=== PATIENT | female | born 1995 | race Caucasian/White ===

== ENCOUNTER → 2016-10-31 | Outpatient (REF) | payer BC | LOC: M SFHCLERA 14:48 | PROVIDERS: ATTEND Nurse Practitioner Family | DX: R30.0 Dysuria (principal) ==

== ENCOUNTER 2017-01-24 10:41 | Emergency (ER) | payer BC ==
[~2017-01-24] VITALS: Ht 170.2 cm; Wt 78.2 kg
[2017-01-24] MEDS ORDERED: AUGM875T28 PO (10:47)
[2017-01-24] MEDS ORDERED: diphenhydrAMINE 25 MG CAP PO ONE (12:00)
[2017-01-24] MEDS ORDERED: DIFL150T PO (12:19)
[2017-01-24 12:29] VITALS: BP 122/67
== END 2017-01-24 12:30 | disposition home or self-care (01) ==
LOC: M ED 10:41
DX: N89.8 Other specified noninflammatory disorders of vagina (principal); T78.40XA Allergy, unspecified, initial encounter; X58.XXXA Exposure to other specified factors, initial encounter; Y92.89 Other specified places as the place of occurrence of the external cause; Z79.2 Long term (current) use of antibiotics

== ENCOUNTER → 2017-02-13 | Outpatient (REF) | payer BC ==
[~2017-02-13] MED LIST: AUGM875T28 PO; DIFL150T PO
== END ==
LOC: M SFHCLERA 15:12
PROVIDERS: ATTEND Physician Assistant
DX: R39.9 Unspecified symptoms and signs involving the genitourinary system (principal)

== ENCOUNTER → 2017-03-16 | Outpatient (REF) | payer BC | LOC: M SFHCLERA 12:33 | DX: R30.0 Dysuria (principal) | CPT/HCPCS: 87186 ==

== ENCOUNTER → 2017-05-01 | Outpatient (REF) | payer BC | LOC: M LAB REF 13:31 | DX: R30.0 Dysuria (principal) | CPT/HCPCS: 87086 ==

== ENCOUNTER → 2017-05-10 | Outpatient (CLI) | payer BC ==
[2017-05-10 17:39] LABS: BASO % 0.5 % (0.0-1.0); EOS % 0.5 % (0.0-3.0); HEMATOCRIT 38.5 % (36.0-47.0); HEMOGLOBIN 12.5 g/dl (12.0-16.0); IMMATURE GRANULOCYTE % 0.4 % (0-3.0); LYMPH # 1.9 10^3/uL (1.5-6.5); LYMPH % 22.3 % (24.0-44.0); MEAN CORPUSCULAR HEMOGLOBIN 27.4 pg (27.0-33.0); MEAN CORPUSCULAR HGB CONC 32.5 g/dl (32.0-36.5); MEAN CORPUSCULAR VOLUME 84.4 fl (80.0-96.0); MONO # 0.5 10^3/uL (0.0-0.8); MONO % 6.2 % (0.0-5.0); NEUTROPHILS # 5.8 10^3/uL (1.8-7.7); NEUTROPHILS % 70.1 % (36.0-66.0); PLATELET COUNT, AUTOMATED 241 10^3/uL (150-450); RED BLOOD COUNT 4.56 10^6/uL (4.00-5.40); RED CELL DISTRIBUTION WIDTH 12.4 % (11.5-14.5); WHITE BLOOD COUNT 8.3 10^3/uL (4.0-10.0)
[2017-05-10 19:10] LABS: CHLAMYDIA DNA AMPLIFICATION NEGATIVE (NEGATIVE); GC DNA AMPLIFICATION NEGATIVE (NEGATIVE)
[2017-05-13 12:13] LABS: RUBELLA IgG QUALITATIVE IMMUNE (IMMUNE)
[2017-05-13 12:16] LABS: HBsAg Prenatal NEGATIVE (NEGATIVE)
[2017-05-13 12:42] LABS: HIV 1&2 SCREEN CENTAUR NEGATIVE (NEGATIVE)
[2017-05-13 12:42] LABS: HEPATITIS C VIRUS ABY INDEX 0.1 INDEX (<0.8)
== END ==
LOC: M SMT 09:26
DX: Z3A.08 8 weeks gestation of pregnancy (principal)
CPT/HCPCS: 86762

== ENCOUNTER 2017-05-27 10:04 | Emergency (ER) | payer BC ==
[2017-05-27] MEDS: NS 1,000 ML IV (11:15)
[2017-05-27 11:41] LABS: BASO % 0.3 % (0.0-1.0); EOS # 0.1 10^3/uL (0.0-0.50); EOS % 0.7 % (0.0-3.0); HEMATOCRIT 37.1 % (36.0-47.0); HEMOGLOBIN 12.4 g/dl (12.0-16.0); IMMATURE GRANULOCYTE % 0.2 % (0-3.0); LYMPH # 1.8 10^3/uL (1.5-6.5); LYMPH % 20.1 % (24.0-44.0); MEAN CORPUSCULAR HGB CONC 33.4 g/dl (32.0-36.5); MEAN CORPUSCULAR VOLUME 83.7 fl (80.0-96.0); MONO # 0.5 10^3/uL (0.0-0.8); MONO % 5.5 % (0.0-5.0); NEUTROPHILS # 6.5 10^3/uL (1.8-7.7); NEUTROPHILS % 73.2 % (36.0-66.0); PLATELET COUNT, AUTOMATED 230 10^3/uL (150-450); RED BLOOD COUNT 4.43 10^6/uL (4.00-5.40); RED CELL DISTRIBUTION WIDTH 12.5 % (11.5-14.5); WHITE BLOOD COUNT 8.9 10^3/uL (4.0-10.0)
[2017-05-27 11:43] LABS: KETONE, URINE AUTO RFX NEGATIVE (NEGATIVE); MUCUS, URINE RFX SMALL (NEGATIVE); NITRITE, URINE AUTO RFX NEGATIVE (NEGATIVE); RBC, URINE AUTO RFX 1 /HPF (0-3); SPECIFIC GRAVITY UR AUTO RFX 1.017 (1.002-1.035); SQUAM EPITHELIAL CELL UR AURFX 9 /HPF (0-6); WBC, URINE AUTO RFX 2 /HPF (0-3)
[2017-05-27 11:44] LABS: LEUKOCYTE ESTERASE UR AUTO RFX 1+ (NEGATIVE)
[2017-05-27 12:01] LABS: ANION GAP 9 MEQ/L (8-16); BLOOD UREA NITROGEN 13 MG/DL (7-18); CALCIUM LEVEL 8.6 MG/DL (8.5-10.1); CARBON DIOXIDE LEVEL 23 MEQ/L (21-32); CHLORIDE LEVEL 106 MEQ/L (98-107); CREATININE FOR GFR 0.57 MG/DL (0.55-1.30); GLOMERULAR FILTRATION RATE > 60.0 (>60); GLUCOSE, FASTING 83 MG/DL (70-100); POTASSIUM SERUM 3.8 MEQ/L (3.5-5.1); SODIUM LEVEL 138 MEQ/L (136-145)
[2017-05-27 12:20] LABS: HCG, SERUM QUANTITATIVE 50117 MIU/ML; THYROXINE (T4) 13.1 UG/DL (4.5-12.0)
[2017-05-27 12:20] LABS: MAGNESIUM LEVEL 1.8 MG/DL (1.8-2.4)
== END 2017-05-27 13:19 | disposition home or self-care (01) ==
LOC: M ED 10:04
DX: O23.41 Unspecified infection of urinary tract in pregnancy, first trimester (principal); Z3A.10 10 weeks gestation of pregnancy
CPT/HCPCS: 76801

== ENCOUNTER → 2017-07-04 | Outpatient (REF) | payer BC | LOC: M LAB REF 17:15 | DX: R30.0 Dysuria (principal); Z34.82 Encounter for supervision of other normal pregnancy, second trimester | CPT/HCPCS: 87186 ==

== ENCOUNTER → 2017-07-19 | Outpatient (CLI) | payer BC | LOC: M RAD 10:59 | DX: Z34.82 Encounter for supervision of other normal pregnancy, second trimester (principal) | CPT/HCPCS: 76811 ==

== ENCOUNTER → 2017-07-30 | Outpatient (REF) | payer BC | LOC: M LAB REF 17:05 | DX: R30.0 Dysuria (principal) | CPT/HCPCS: 87186 ==

== ENCOUNTER → 2017-08-12 | Outpatient (CLI) | payer BC | LOC: M RAD 12:17 | DX: Z36.89 Encounter for other specified antenatal screening (principal); O32.1XX0 Maternal care for breech presentation, not applicable or unspecified; Z3A.23 23 weeks gestation of pregnancy | CPT/HCPCS: 76816 ==

== ENCOUNTER → 2017-09-03 | Outpatient (REF) | payer BC | LOC: M LAB REF 12:59 | DX: Z34.82 Encounter for supervision of other normal pregnancy, second trimester (principal) | CPT/HCPCS: 87186 ==

== ENCOUNTER → 2017-09-16 | Outpatient (CLI) | payer BC | LOC: M RAD 11:45 | DX: O26.843 Uterine size-date discrepancy, third trimester (principal); Z3A.26 26 weeks gestation of pregnancy; O36.62X0 Maternal care for excessive fetal growth, second trimester, not applicable or unspecified | CPT/HCPCS: 76816 ==

== ENCOUNTER → 2017-09-27 | Outpatient (CLI) | payer BC ==
[2017-09-27 17:50] LABS: BASO % 0.2 % (0.0-1.0); EOS % 0.3 % (0.0-3.0); HEMOGLOBIN 11.7 g/dl (12.0-15.5); IMMATURE GRANULOCYTE % 0.9 % (0-3.0); LYMPH # 2.3 10^3/uL (1.5-6.5); LYMPH % 17.9 % (24.0-44.0); MEAN CORPUSCULAR HEMOGLOBIN 28.7 pg (27.0-33.0); MEAN CORPUSCULAR HGB CONC 33.4 g/dl (32.0-36.5); MONO # 0.8 10^3/uL (0.0-0.8); MONO % 5.9 % (0.0-5.0); NEUTROPHILS # 9.7 10^3/uL (1.8-7.7); NEUTROPHILS % 74.8 % (36.0-66.0); PLATELET COUNT, AUTOMATED 251 10^3/uL (150-450); RED BLOOD COUNT 4.07 10^6/uL (4.00-5.40); RED CELL DISTRIBUTION WIDTH 12.8 % (11.5-14.5)
[2017-09-27 18:33] LABS: GLUCOSE CHALLENGE TEST 1 HOUR 98 MG/DL (LESS THAN 140)
== END ==
LOC: M LAB 15:54
DX: Z34.83 Encounter for supervision of other normal pregnancy, third trimester (principal); Z36.89 Encounter for other specified antenatal screening
CPT/HCPCS: 82950

== ENCOUNTER → 2017-11-11 | Outpatient (REF) | payer BC | LOC: M LAB REF 17:19 | DX: Z34.83 Encounter for supervision of other normal pregnancy, third trimester (principal) ==

== ENCOUNTER → 2017-11-18 | Outpatient (REF) | payer BC | LOC: M LAB REF 12:52 | DX: Z34.83 Encounter for supervision of other normal pregnancy, third trimester (principal) | CPT/HCPCS: 87081 ==

== ENCOUNTER 2017-12-19 08:20 | Inpatient (IN) | payer BC ==
[2017-12-19] MEDS: LACTATED RINGER'S 1000 ML IV (09:24)
[2017-12-19 09:48] LABS: HEMOGLOBIN 12.5 g/dl (12.0-15.5); MEAN CORPUSCULAR HEMOGLOBIN 28.2 pg (27.0-33.0); MEAN CORPUSCULAR HGB CONC 32.9 g/dl (32.0-36.5); MEAN CORPUSCULAR VOLUME 85.8 fl (80.0-96.0); PLATELET COUNT, AUTOMATED 250 10^3/uL (150-450); RED BLOOD COUNT 4.43 10^6/uL (4.00-5.40); RED CELL DISTRIBUTION WIDTH 13.2 % (11.5-14.5); WHITE BLOOD COUNT 13.8 10^3/uL (4.0-10.0)
[2017-12-19] MEDS ORDERED: FENTANYL 2MCG/ML ROPIVACAINE 0.2% IN 0.9% NACL 200ML IVBAG As Ordered (09:48)
[2017-12-19] MEDS ORDERED: OXYTOCIN 30 UNITS IN 0.9% NaCl 500ML IV BAG (J2590) As Ordered (09:49)
[2017-12-19] MEDS: LR 1,000 ML IV (10:40)
[2017-12-19] MEDS: FENTANYL/ROPIVACAINE/NACL BAG 200 ML EPIDURAL (11:30)
[2017-12-19] MEDS ORDERED: NALOXONE INJ 0.4 MG/1 ML VIAL (J2310) IV (11:30)
[2017-12-19] MEDS ORDERED: diphenhydrAMINE INJ 50MG/ML VIAL (J1200) IV (11:30)
[2017-12-19] MEDS ORDERED: EPIDURAL/PCA KEYS XX (11:30)
[2017-12-19] MEDS ORDERED: REFRIGERATOR IV KEYS XX (11:30)
[2017-12-19] MEDS ORDERED: EPIDURAL COMMENT XX (11:30)
[2017-12-19] MEDS ORDERED: ePHEDrine SULFATE 25 MG/5 ML(5MG/ML) SYRINGE IV (11:30)
[2017-12-19] MEDS: ONDANSETRON 4MG/2ML VIAL (J2405) IV (12:04)
[2017-12-19] MEDS ORDERED: OXYTOCIN DRIP 30 UNITS in APPROPRIATE DILUENT 1 EA IV ×2 (19:15→21:40)
[2017-12-19] MEDS ORDERED: DOCUSATE SODIUM 100 MG CAP PO (21:45)
[2017-12-19] MEDS ORDERED: MEASLES,MUMPS,RUBELLA VACCINE INJ (MMR-II) (90707) SC (21:45)
[2017-12-19] MEDS ORDERED: METHYLERGONOVINE MALEATE 0.2 MG TAB PO (21:45)
[2017-12-19] MEDS ORDERED: RHOGAM 300 MCG (1500 IU) INJ (J2790) IM (21:45)
[2017-12-20] MEDS: IBUPROFEN 800 MG TAB PO ×3 (01:23→18:06)
[2017-12-20] MEDS: PRENATAL VITAMINS CHEWABLE TABLET PO (10:04)
[2017-12-20] MEDS: DIBUCAINE 1% OINTMENT 30GM TOP (10:05)
[2017-12-20] MEDS: ACETAMINOPHEN 500 MG TAB PO (15:10)
[2017-12-21] MEDS: PRENATAL VITAMINS CHEWABLE TABLET PO (09:52)
== END 2017-12-21 10:31 | disposition home or self-care (01) | DRG 560 ==
LOC: M LDO 08:20 → M LDI 08:52 → M OBS 23:57
PROVIDERS: Advanced Practice Midwife
PROC: 10E0XZZ Delivery of Products of Conception, External Approach (ICD-10-PCS; principal; 2017-12-19)
PROC: 0HQ9XZZ Repair Perineum Skin, External Approach (ICD-10-PCS; 2017-12-19)
DX: O48.0 Post-term pregnancy (principal); Z3A.40 40 weeks gestation of pregnancy; O70.0 First degree perineal laceration during delivery; Z37.0 Single live birth

== ENCOUNTER → 2018-08-18 | Outpatient (REF) | payer BC, MEDICAID ==
[~2018-08-18] MED LIST changes: +IBUP-1114 PO; +MAPA500C PO; +PRENTAB9 PO
== END ==
LOC: M LAB REF 17:08
PROVIDERS: ATTEND Advanced Practice Midwife
DX: Z12.4 Encounter for screening for malignant neoplasm of cervix (principal); N87.0 Mild cervical dysplasia

== ENCOUNTER → 2019-02-08 | Outpatient (REF) | payer BC, MEDICAID ==
[2019-02-08 17:27] LABS: AMORPHOUS SEDIMENT SMALL (NEGATIVE); APPEARANCE, URINE CLEAR (CLEAR); BACTERIA, URINE AUTO 1+ (NEGATIVE); BILIRUBIN, URINE AUTO NEGATIVE (NEGATIVE); BLOOD, URINE BLOOD 1+ (NEGATIVE); COLOR, URINE YELLOW (YELLOW); GLUCOSE, URINE (UA) AUTO NEGATIVE (NEGATIVE); KETONE, URINE AUTO TRACE mg/dL (NEGATIVE); LEUKOCYTE ESTERASE, URINE AUTO 2+ (NEGATIVE); MUCUS, URINE SMALL (NEGATIVE); NITRITE, URINE AUTO NEGATIVE (NEGATIVE); PROTEIN, URINE AUTO 1+ mg/dL (NEGATIVE); RBC, URINE AUTO 25 /HPF (0-3); SPECIFIC GRAVITY URINE AUTO 1.025 (1.002-1.035); SQUAMOUS EPITHELIAL CELL UR AU 7 /HPF (0-6); TRANSITIONAL EPITHELIAL AUTO 2 /HPF; UROBILINOGEN, URINE AUTO 0.2 mg/dL (0.0-2.0); WBC, URINE AUTO 106 /HPF (0-3)
== END ==
LOC: M LAB REF 13:32
PROVIDERS: ATTEND Nurse Practitioner Family
DX: R30.0 Dysuria (principal)

== ENCOUNTER → 2019-07-23 | Outpatient (REF) | payer BC, MEDICAID | LOC: M LAB REF 12:28 | PROVIDERS: ATTEND Physician Assistant | DX: R30.0 Dysuria (principal) ==

== ENCOUNTER → 2019-11-16 | Outpatient (CLI) | payer BC, MEDICAID ==
[2019-11-16 17:09] LABS: URINE PREG TEST NEGATIVE (NEGATIVE)
[2019-11-16 17:17] LABS: BASO # 0.1 10^3/uL (0.0-0.2); BASO % 0.6 % (0.0-1.0); EOS # 0.1 10^3/uL (0.0-0.5); EOS % 0.8 % (0.0-3.0); HEMOGLOBIN 13.1 g/dl (12.0-15.5); LYMPH # 3.2 10^3/uL (1.5-5.0); MEAN CORPUSCULAR HEMOGLOBIN 27.5 pg (27.0-33.0); MONO # 0.7 10^3/uL (0.0-0.8); MONO % 7.3 % (0.0-5.0); NEUTROPHILS % 55.1 % (36.0-66.0); PLATELET COUNT, AUTOMATED 262 10^3/uL (150-450); RED BLOOD COUNT 4.77 10^6/uL (4.00-5.40)
[2019-11-16 17:45] LABS: ALBUMIN 4.2 GM/DL (3.2-5.2); ALT/SGPT 23 U/L (12-78); BILIRUBIN,TOTAL 0.4 MG/DL (0.2-1.0); BLOOD UREA NITROGEN 18 MG/DL (7-18); CALCIUM LEVEL 9.7 MG/DL (8.5-10.1); CARBON DIOXIDE LEVEL 26 MEQ/L (21-32); CHLORIDE LEVEL 107 MEQ/L (98-107); CREATININE FOR GFR 0.76 MG/DL (0.55-1.30); FREE T4 1.17 NG/DL (0.76-1.46); GLOMERULAR FILTRATION RATE > 60.0 (>60); GLUCOSE, FASTING 94 MG/DL (70-100); HCG, SERUM QUANTITATIVE < 1.0 MIU/ML; POTASSIUM SERUM 3.9 MEQ/L (3.5-5.1); SODIUM LEVEL 138 MEQ/L (136-145); THYROID STIMULATING HORMONE 0.644 uIU/ML (0.358-3.740); TOTAL PROTEIN 7.7 GM/DL (6.4-8.2)
== END ==
LOC: M LAB 16:30
PROVIDERS: ATTEND Family Medicine
DX: O99.89 Other specified diseases and conditions complicating pregnancy, childbirth and the puerperium (principal); R61 Generalized hyperhidrosis; Z3A.00 Weeks of gestation of pregnancy not specified

== ENCOUNTER → 2020-02-17 | Outpatient (CLI) | payer BC, MEDICAID | LOC: M LABSMTC 11:58 | PROVIDERS: ATTEND Family Medicine | DX: Z20.828 Contact with and (suspected) exposure to other viral communicable diseases (principal) ==

== ENCOUNTER → 2020-05-26 | Outpatient (REF) | payer BC, MEDICAID ==
[2020-05-26 17:21] LABS: APPEARANCE, URINE MANUAL CLEAR (CLEAR); COLOR, URINE MANUAL ORANGE (YELLOW)
[2020-05-26 17:29] LABS: GLUCOSE, URINE (UA) MANUAL NEGATIVE (NEGATIVE); PH,URINE MAN 6.5 UNITS (5.0 - 7.0); PROTEIN, URINE MANUAL OBSCURED mg/dL (NEGATIVE); SPECIFIC GRAVITY,URINE MANUAL 1.005 (1.002-1.035)
[2020-05-26 17:30] LABS: BILIRUBIN, URINE MANUAL OBSCURED (NEGATIVE); BLOOD URINE MANUAL POSITIVE (NEGATIVE); KETONE, URINE MANUAL OBSCURED mg/dL (NEGATIVE); LEUKOCYTE ESTERASE, URINE MAN POSITIVE (NEGATIVE); NITRITE, URINE MANUAL OBSCURED (NEGATIVE); UROBILINOGEN, URINE MANUAL OBSCURED mg/dl (NORMAL)
[2020-05-26 17:54] LABS: HYALINE CAST, URINE NONE SEEN /lpf (0-1); SQUAMOUS EPITHELIAL CELL URINE SMALL AMOUNT /hpf (SMALL AMT); WBC, URINE 40-50 /hpf (0-3)
[2020-05-26 17:55] LABS: BACTERIA, URINE MOD AMOUNT
== END ==
LOC: M LAB REF 16:27
PROVIDERS: ATTEND Physician Assistant
DX: R30.0 Dysuria (principal)

== ENCOUNTER 2020-09-09 12:32 | Emergency (ER) | payer BC, MEDICAID ==
[~2020-09-09] VITALS: Ht 170.2 cm; Wt 88.3 kg
[2020-09-09 12:32] VITALS: BP 140/72
== END 2020-09-09 13:44 | disposition left against medical advice (07) ==
LOC: M ED 12:32
DX: Z53.21 Procedure and treatment not carried out due to patient leaving prior to being seen by health care provider (principal)

== ENCOUNTER → 2020-09-28 | Outpatient (CLI) | payer BC, MEDICAID ==
[2020-09-28 13:28] LABS: BASO % 0.4 % (0.0-1.0); EOS % 0.2 % (0.0-3.0); HEMOGLOBIN 12.7 g/dl (12.0-15.5); LYMPH # 2.2 10^3/uL (1.5-5.0); LYMPH % 20.4 % (24.0-44.0); MEAN CORPUSCULAR HEMOGLOBIN 27.7 pg (27.0-33.0); MEAN CORPUSCULAR HGB CONC 32.6 g/dl (32.0-36.5); MEAN CORPUSCULAR VOLUME 85.2 fl (80.0-96.0); MONO # 0.6 10^3/uL (0.0-0.8); MONO % 5.5 % (2.0-8.0); NEUTROPHILS # 7.9 10^3/uL (1.5-8.5); NEUTROPHILS % 73.2 % (36.0-66.0); PLATELET COUNT, AUTOMATED 256 10^3/uL (150-450); RED BLOOD COUNT 4.58 10^6/uL (4.00-5.40); WHITE BLOOD COUNT 10.8 10^3/uL (4.0-10.0)
[2020-09-28 14:40] LABS: HIV 1&2 SCREEN CENTAUR NEGATIVE (NEGATIVE)
[2020-09-28 14:54] LABS: GC DNA AMPLIFICATION NEGATIVE (NEGATIVE)
== END ==
LOC: M PLALAB 11:42
PROVIDERS: ATTEND Advanced Practice Midwife
DX: Z34.81 Encounter for supervision of other normal pregnancy, first trimester (principal)

== ENCOUNTER → 2020-10-18 | Outpatient (REF) | payer BC, MEDICAID ==
[2020-10-18 15:27] LABS: APPEARANCE, URINE CLOUDY (CLEAR); BACTERIA, URINE AUTO 1+ (NEGATIVE); BILIRUBIN, URINE AUTO NEGATIVE (NEGATIVE); BLOOD, URINE BLOOD 1+ (NEGATIVE); COLOR, URINE YELLOW (YELLOW); GLUCOSE, URINE (UA) AUTO NEGATIVE (NEGATIVE); KETONE, URINE AUTO NEGATIVE (NEGATIVE); LEUKOCYTE ESTERASE, URINE AUTO 2+ (NEGATIVE); MUCUS, URINE SMALL (NEGATIVE); NITRITE, URINE AUTO NEGATIVE (NEGATIVE); PROTEIN, URINE AUTO 1+ mg/dL (NEGATIVE); RBC, URINE AUTO 24 /HPF (0-3); SQUAMOUS EPITHELIAL CELL UR AU 36 /HPF (0-6); UROBILINOGEN, URINE AUTO 0.2 mg/dL (0.0-2.0); WBC, URINE AUTO TNTC /HPF (0-3)
== END ==
LOC: M LAB REF 14:41
PROVIDERS: ATTEND Physician Assistant Medical
DX: N39.0 Urinary tract infection, site not specified (principal); R30.0 Dysuria

== ENCOUNTER → 2020-11-24 | Outpatient (CLI) | payer BC, MEDICAID ==
--- NOTE | 2020-11-24 12:36 | REP ---
INDICATION: ANATOMY. COMPARISON: None. TECHNIQUE: Transabdominal obstetric sonography. FINDINGS: Scanning through the gravid uterus demonstrates a viable single intrauterine gestation in cephalic lie. motion is observed and heart rate is recorded at 158 beats per minute. A posterior placenta is seen, grade 0, without evidence of placenta previa. Closed cervical length is measured at 4.1 cm transabdominally. No extrauterine abnormality is observed. Amniotic fluid is subjectively normal. No anomaly is seen. The following anatomic structures are identified and felt to be sonographically unremarkable: cranium, choroid plexus, cavum, cerebellum and posterior fossa, lungs, four-chamber heart with left and right ventricular outflow tract views, diaphragm, left-sided stomach, abdominal wall cord insertion, three-vessel umbilical cord, kidneys and bladder, spine, and upper and lower extremities. face and profile views are less than optimally achieved due to position. Biometry chart: BPD 4.5 cm, 19 weeks 4 days Head circumference 16.8 cm, 19 weeks 3 days Abdominal circumference 14.2 cm, 19 weeks 4 days Femur length 3.3 cm, 20 weeks 2 days Humeral length 3.0 cm, 20 weeks 0 days HC AC ratio normal 1.19 Cephalic index normal 0.73 Estimated weight 316 g, 0 lb 11 oz, 52nd percentile for 19 weeks 5 days IMPRESSION: Viable single intrauterine gestation at 19 weeks 5 days by today's composite sonographic criteria. LINCOLN by today's sonography April 15, 2021. No complication identified. Expected gestational age estimate from known LINCOLN of April 15, 2021 is 19 weeks 5 days as well. <Electronically signed by Nj Townsend > 11/24/20 [id number]
== END ==
LOC: M WHC 11:00
PROVIDERS: ATTEND Advanced Practice Midwife
DX: Z36.3 Encounter for antenatal screening for malformations (principal); Z3A.19 19 weeks gestation of pregnancy

== ENCOUNTER → 2021-01-25 | Outpatient (CLI) | payer BC, MEDICAID ==
[2021-01-25 15:25] LABS: HEMATOCRIT 34.5 % (36.0-47.0); HEMOGLOBIN 11.2 g/dl (12.0-15.5); MEAN CORPUSCULAR HEMOGLOBIN 27.5 pg (27.0-33.0); MEAN CORPUSCULAR HGB CONC 32.5 g/dl (32.0-36.5); MEAN CORPUSCULAR VOLUME 84.6 fl (80.0-96.0); PLATELET COUNT, AUTOMATED 298 10^3/uL (150-450); RED BLOOD COUNT 4.08 10^6/uL (4.00-5.40); WHITE BLOOD COUNT 13.7 10^3/uL (4.0-10.0)
[2021-01-25 17:16] LABS: GC DNA AMPLIFICATION NEGATIVE (NEGATIVE)
== END ==
LOC: M PLALAB 12:16
PROVIDERS: ATTEND Obstetrics & Gynecology
DX: Z34.82 Encounter for supervision of other normal pregnancy, second trimester (principal); Z3A.00 Weeks of gestation of pregnancy not specified

== ENCOUNTER → 2021-02-14 | Outpatient (CLI) | payer BC, MEDICAID ==
--- NOTE | 2021-02-14 14:02 | REP ---
INDICATION: F/U ANATOMY COMPARISON: 11/24/2020 TECHNIQUE: Transabdominal obstetrical ultrasound with color Doppler evaluation. FINDINGS: Examination demonstrates a single live intrauterine in cephalic presentation. motion is identified by technologist. Placenta is noted posterior and grade 1 without evidence for placenta previa or abruption. Amniotic fluid volume is normal. Cervix appears closed. Selected gestational age: 31 weeks 3 days with LINCOLN 04/15/2021. Gestational age by current measurements 31 weeks 1 day with LINCOLN 04/17/2021. FHR equals 153 beats per minute. Estimated weight 1791 grams (43rdpercentile). JULIET: 17.8 cm Umbilical artery SD ratio: 2.60 Anatomical assessment is incomplete due to positioning and profile was again incompletely evaluated. IMPRESSION: Single live advanced gestation in cephalic presentation demonstrating appropriate estimated weight and growth. Evaluation of the profile is again limited due to positioning and motion. <Electronically signed by Royal Castle > 02/14/21 [id number]
== END ==
LOC: M WHC 12:18
PROVIDERS: ATTEND Advanced Practice Midwife
DX: Z34.93 Encounter for supervision of normal pregnancy, unspecified, third trimester (principal); Z3A.31 31 weeks gestation of pregnancy

== ENCOUNTER → 2021-03-29 | Outpatient (REF) | payer BC, MEDICAID | LOC: M SFHCWAGY 17:07 | PROVIDERS: ATTEND Obstetrics & Gynecology | DX: Z36.85 Encounter for antenatal screening for Streptococcus B (principal); Z3A.00 Weeks of gestation of pregnancy not specified ==

== ENCOUNTER → 2021-10-30 | Outpatient (REF) | payer BC, MEDICAID ==
[~2021-10-30] MED LIST changes: +ACET-683 PO; +COLA100C5 PO; +IBUP-1022 PO
[2021-10-30 16:48] LABS: APPEARANCE, URINE MANUAL CLEAR (CLEAR)
[2021-10-30 16:49] LABS: BILIRUBIN, URINE MANUAL NEGATIVE (NEGATIVE); BLOOD URINE MANUAL TRACE (NEGATIVE); COLOR, URINE MANUAL LT YELLOW (YELLOW); GLUCOSE, URINE (UA) MANUAL NEGATIVE (NEGATIVE); KETONE, URINE MANUAL NEGATIVE (NEGATIVE); LEUKOCYTE ESTERASE, URINE MAN POSITIVE (NEGATIVE); NITRITE, URINE MANUAL NEGATIVE (NEGATIVE); PROTEIN, URINE MANUAL NEGATIVE (NEGATIVE); SPECIFIC GRAVITY,URINE MANUAL 1.005 (1.002-1.035); UROBILINOGEN, URINE MANUAL NORMAL (NORMAL)
[2021-10-30 18:08] LABS: BACTERIA, URINE SMALL AMOUNT; RBC, URINE 0-1 /hpf (0-3); SQUAMOUS EPITHELIAL CELL URINE SMALL AMOUNT /hpf (SMALL AMT)
[2021-10-30 18:09] LABS: HYALINE CAST, URINE NONE SEEN /lpf (0-1)
== END ==
LOC: M LAB REF 15:56
PROVIDERS: ATTEND Physician Assistant Medical
DX: N39.0 Urinary tract infection, site not specified (principal)

== ENCOUNTER → 2023-04-03 | Outpatient (CLI) | payer OTHER ==
[2023-04-03 15:34] LABS: BASO # 0.1 10^3/uL (0.0-0.2); BASO % 0.6 % (0.0-1.0); EOS # 0.1 10^3/uL (0.0-0.5); EOS % 0.6 % (0.0-3.0); HEMATOCRIT 38.7 % (36.0-47.0); HEMOGLOBIN 12.2 g/dl (12.0-15.5); LYMPH # 2.8 10^3/uL (1.5-5.0); LYMPH % 32.5 % (24.0-44.0); MEAN CORPUSCULAR HEMOGLOBIN 27.5 pg (27.0-33.0); MEAN CORPUSCULAR HGB CONC 31.5 g/dl (32.0-36.5); MEAN CORPUSCULAR VOLUME 87.4 fl (80.0-96.0); MONO # 0.6 10^3/uL (0.0-0.8); MONO % 6.9 % (2.0-8.0); NEUTROPHILS # 5.1 10^3/uL (1.5-8.5); NEUTROPHILS % 59.1 % (36.0-66.0); PLATELET COUNT, AUTOMATED 268 10^3/uL (150-450); RED BLOOD COUNT 4.43 10^6/uL (4.00-5.40); WHITE BLOOD COUNT 8.6 10^3/uL (4.0-10.0)
[2023-04-03 15:43] LABS: HEMOGLOBIN A1c 5.3 % (4.0-6.0)
[2023-04-03 15:55] LABS: ALBUMIN 3.7 G/DL (3.2-5.2); ALKALINE PHOSPHATASE 51 U/L (46-116); ALT/SGPT 16 U/L (7.0-40); AST/SGOT 14 U/L (<34); BILIRUBIN,TOTAL 0.3 MG/DL (0.3-1.2); BLOOD UREA NITROGEN 16 MG/DL (9-23); CARBON DIOXIDE LEVEL 27 MMOL/L (20-31); CHLORIDE LEVEL 109 MMOL/L (98-107); CREATININE FOR GFR 0.72 MG/DL (0.55-1.30); GLOMERULAR FILTRATION RATE > 60.0 (>60); GLUCOSE, FASTING 85 MG/DL (60-100); POTASSIUM SERUM 4.6 MMOL/L (3.5-5.1); SODIUM LEVEL 139 MMOL/L (136-145); TOTAL PROTEIN 6.6 G/DL (5.7-8.2)
[2023-04-03 15:58] LABS: THYROID STIMULATING HORMONE 0.499 uIU/ML (0.55-4.78)
[2023-04-03 15:59] LABS: FREE T4 1.22 NG/DL (0.89-1.76); PROLACTIN 4.77 NG/ML
== END ==
LOC: M PLALAB 11:01
PROVIDERS: ATTEND Nurse Practitioner Family
DX: N92.0 Excessive and frequent menstruation with regular cycle (principal); Z12.4 Encounter for screening for malignant neoplasm of cervix

== ENCOUNTER → 2023-06-12 | Outpatient (CLI) | payer OTHER | LOC: M OUTALCOH 12:57 | PROVIDERS: ATTEND Psychiatry & Neurology Psychiatry | DX: F10.20 Alcohol dependence, uncomplicated (principal); F12.20 Cannabis dependence, uncomplicated ==

== ENCOUNTER 2023-06-27 16:00 | Outpatient (RCR) | payer OTHER | END 2023-07-02 | LOC: M OUTALCOH 16:00 | PROVIDERS: ATTEND Psychiatry & Neurology Psychiatry | DX: F10.20 Alcohol dependence, uncomplicated (principal); F12.20 Cannabis dependence, uncomplicated ==

== ENCOUNTER 2023-08-28 15:00 | Outpatient (RCR) | payer OTHER | END 2023-09-01 | LOC: M OUTALCOH 15:00 | PROVIDERS: ATTEND Psychiatry & Neurology Psychiatry | DX: F10.20 Alcohol dependence, uncomplicated (principal); F12.20 Cannabis dependence, uncomplicated ==